=== PATIENT | male | born 1970 | race Caucasian/White ===

== ENCOUNTER → 2024-10-01 12:46 | Outpatient (REF) | payer OTHER, SELFPAY | LOC: DHSLP 12:46 | PROVIDERS: ATTENDING PHYSICIAN Physician Assistant Medical | DX: G47.33 Obstructive sleep apnea (adult) (pediatric) (principal); R06.83 Snoring; I10 Essential (primary) hypertension; E66.9 Obesity, unspecified; Z68.36 Body mass index [BMI] 36.0-36.9, adult | CPT/HCPCS: 95800 ==